=== PATIENT | female | born 1990 | race Caucasian/White ===

== ENCOUNTER 2018-09-01 13:22 | Emergency (ER) | payer BC ==
--- NOTE | 2018-09-01 13:49 | Emergency Department Record ---
History of Present Illness - General Chief complaint: Hypergylcemia Stated complaint: ELEVATED BLOOD SUGAR Time Seen by Provider: 09/01/18 13:36 Source: Patient, Family Mode of Arrival: Ambulatory Limitations: No limitations - History of Present Illness Initial comments: 27 yo female presents with general fatigue and vaguely not feeling normal for a month. The last week is more noticeable. She feels tired, foggy, slowed. No fevers, chills, vomiting, diarrhea. She has been urinating more. No changes in her menstrual cycles. She is a diabetic. Her glucose has been running higher the last week near 200. She has a PCP and an fingerprinter. She had some dosing changes this week as well but the sugars have now lowered. MD Complaint: Lack of energy Onset/Timin -: Week(s) Consistency: Constant Worsens with: Evening Associated Symptoms: Denies other symptoms - Sandrita Coma Scale Eye Response: (4) Open spontaneously Motor Response: (6) Obeys commands Verbal Response: (5) Oriented Sandrita Total: 15 - Related Data Home Medications Medication Instructions Recorded Confirmed Last Taken Insulin Glargine,Hum.rec.anlog 1 unit SQ ASDIR 09/01/18 09/01/18 Unknown [Lantus] Insulin Lispro [Humalog] 100 unit SQ ASDIR 09/01/18 09/01/18 Unknown Allergies Allergy/AdvReac Type Severity Reaction Status Date / Time lamotrigine [From Lamictal] Allergy HIVES Verified 09/01/18 13:33 levetiracetam [From Keppra] Allergy BEHAVIORAL Verified 09/01/18 13:33 CHANGES Travel Screening - Travel/Exposure Within Last 30 Days Have you traveled within the last 30 days?: No Review of Systems Constitutional: Reports: Malaise. Denies: Chills, Fever Eyes: Denies: Eye discharge ENT: Denies: Congestion, Throat pain Respiratory: Denies: Cough, Dyspnea, Hemoptysis, Wheezes Cardiovascular: Denies: Chest pain, Palpitations, Syncope Endocrine: Reports: Fatigue Gastrointestinal: Denies: Abdominal pain, Diarrhea, Nausea, Vomiting Genitourinary: Denies: Dysuria Musculoskeletal: Denies: Arthralgia, Back pain, Myalgia Skin: Denies: Bruising, Change in color, Rash Neurological: Reports: Weakness. 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 negative: Conjunctival injection, Scleral icterus - ENT ENT exam: Normal exam, Mucous membranes moist. negative: Normal orophraynx Ear exam: Normal external inspection Nasal Exam: Normal inspection Mouth exam: Normal external inspection Teeth exam: Normal inspection Throat exam: Normal inspection - Neck Neck exam: Normal inspection, Full ROM. negative: Lymphadenopathy, Tenderness, Thyromegaly - Respiratory Respiratory exam: Normal lung sounds bilaterally. negative: Respiratory distress - Cardiovascular Cardiovascular Exam: Regular rate, Normal rhythm, Normal heart sounds - GI/Abdominal GI/Abdominal exam: Soft. negative: Tenderness - Rectal Rectal exam: Deferred - exam: Deferred - Extremities Extremities exam: Normal inspection, Full ROM, Normal capillary refill. negative: Pedal edema, Tenderness - Back Back exam: Denies: CVA tenderness (R), CVA tenderness (L) - Neurological Neurological exam: Alert, Normal gait, Oriented X3. negative: Altered, Motor sensory deficit - Psychiatric Psychiatric exam: Normal affect, Normal mood. negative: Agitated, Anxious - Skin Skin exam: Dry, Intact, Normal color, Warm Course Vital Signs 09/01/18 13:27 Temperature 98.2 F Pulse Rate 70 Respiratory 18 Rate Blood Pressure 126/84 Pulse Ox 99 - Reevaluation(s) Reevaluation #1: No acute changes on the CBC The UA is negative for ketones HCG is negative 09/01/18 14:14 09/01/18 15:00 The labs were reviewed The CBC, CMP were without significant changes The TSH was normal at 0.52 The A1C is 6.00 Medical Decision Making - Lab Data Result diagrams: 09/01/18 13:54 09/01/18 13:54 Lab Results 09/01/18 Range/Units 13:37 POC Glucose 196 H (70-110) mg/dL Disposition Disposition: Discharge Clinical Impression: Diabetes Qualifiers: Diabetes mellitus type: other specified (including ERNST) Diabetes mellitus viscosity inspector insulin use: unspecified long-term insulin use status Diabetes mellitus complication status: with unspecified complications Qualified Code(s): E13.8 - Other specified diabetes mellitus with unspecified complications Disposition: Home, Self-Care Condition: (1) Good Instructions: Diabetic Hyperglycemia (ED) Additional Instructions: Call your family doctor and your fingerprinter for close follow up Stay well hydrated Keep a log of all your blood glucose checks Forms: Patient Portal Access Time of Disposition: 15:02 Quality - Quality Measures Quality Measures: N/A - Blood Pressure Screening Does Patient Have Any of the Following: No Blood Pressure Classification: Pre-Hypertensive BP Reading Systolic Measurement: 126 Diastolic Measurement: 84 Screening for High Blood Pressure: < Pre-Hypertensive BP, F/U Documented > [ [id number]] Pre-Hypertensive Follow-up Interventions: Referral to alternative/primary care provider.
[2018-09-01 14:03] LABS: BASO % 0.6 % (0-6); EOS % 1.5 % (0-6); GRAN % 60.2 % (47-80); HEMATOCRIT 42.8 % (35.0-47.0); HEMOGLOBIN 14.8 gm/dl (11.6-16.0); LYMPH % 30.2 % (16-45); MEAN CELL VOLUME 87.2 fl (81-97); MEAN CORPUSCULAR HEMOGLOBIN 30.1 pg (27-33); MEAN CORPUSCULAR HGB CONC 34.6 g/dl (32-36); MEAN PLATELET VOLUME 11.3 fl (7.4-10.4); MONO % 7.5 % (0-9); PLATELET COUNT 274 K/uL (130-400); RED BLOOD COUNT 4.91 M/uL (3.80-5.40); RED CELL DISTRIBUTION WIDTH 12.9 % (11.5-14.5); WHITE BLOOD COUNT W/O DIFF 6.8 K/uL (4.2-12.2)
[2018-09-01 14:05] LABS: URINE APPEARANCE CLEAR; URINE BILIRUBIN NEGATIVE (NEGATIVE); URINE BLOOD NEGATIVE (NEGATIVE); URINE COLOR YELLOW; URINE KETONE NEGATIVE (NEGATIVE); URINE LEUKOCYTE ESTERASE NEGATIVE (NEGATIVE); URINE NITRITE NEGATIVE (NEGATIVE); URINE PROTEIN NEGATIVE (NEGATIVE); URINE UROBILINOGEN 0.2 E.U./dL (0.20 - 1.00)
[2018-09-01 14:08] LABS: HCG,QUALITATIVE URINE NEGATIVE (NEGATIVE)
[2018-09-01 14:37] LABS: BLOOD UREA NITROGEN 12 mg/dL (6-20); CREATININE 0.5 mg/dL (0.5-0.9); EST GLOMERULAR FILTRATION RATE > 60 mL/min
[2018-09-01 14:38] LABS: TOTAL PROTEIN 6.6 g/dL (6.6-8.7)
[2018-09-01 14:40] LABS: GLUCOSE,RANDOM 186 mg/dL (74-109)
[2018-09-01 14:43] LABS: ALB/GLOB RATIO 1.4 (1.1-1.8); ALBUMIN 3.9 g/dL (4.0-5.0); ALKALINE PHOSPHATASE 54 U/L (35-104); ALT/SGPT 8 U/L (<33); AST/SGOT 10 U/L (10.0-35.0)
[2018-09-01 14:53] LABS: THYROID STIMULATING HORMONE 0.59 uIU/mL (0.270-4.20)
== END 2018-09-01 15:37 | disposition home or self-care (01) ==
LOC: ER 13:22
DX: E11.65 Type 2 diabetes mellitus with hyperglycemia (principal); R35.0 Frequency of micturition; R53.83 Other fatigue; Z79.4 Long term (current) use of insulin
CPT/HCPCS: 36416; 80053; 81003; 81025; 82948; 83036; 83735; 84443; 85025; 99283